=== PATIENT | female | born 2005 | race African-American/Black ===

== ENCOUNTER 2024-11-01 10:19 | Outpatient (CLI) | payer OTHER, SELFPAY ==
[2024-11-01 11:05] LABS: Hematocrit 39.3 % (37.0-47.0); Hemoglobin 13.5 g/dL (12.0-15.0); Mean Corpuscular HGB Conc 34.4 g/dl (32-36); Mean Corpuscular Hemoglobin 28.9 pg (26-34); Mean Corpuscular Volume 84.2 fl (80-100); Mean Platelet Volume 9.5 fl (7.4-10.4); Platelet Count Result 270 k/mm3 (150-375); Red Blood Count 4.67 M/mm3 (4.2-5.4); Red Cell Distribution Width 13.6 % (11.5-14.5); White Blood Count 9.2 K/mm3 (4.5-10.0)
--- OUTSIDE RECORDS SUMMARY | 2024-11-01 11:10 | XMS_ITS | Referral Summary ---
Author Organization [facility] Address [address] [place] [address] Care Team Providers Care Senior Underwriting Assistant Name Role Phone Janet Griggs NP Primary Care Provider Source Comments [facility],non-owned Affiliates and Associated Physician Practices is amultiple site organization consisting of ambulatory clinics and hospital sitesin [place], [place], [place] and [place]. This disclosure is being madepursuant to the Care Everywhere program and may not contain all information available regarding this patient. Last updated 18.[facility] [employer] Allergies No known active allergies Medications * Be aware that medications may not be up to date on this document. Alwaysverify current medications with the patient. Medication Sig Dispensed Refills Start Date End Date Status Humidifiers (COOL MIST HUMIDIFIER) MISC Use in child's room 1 Each 0 01/13/2012 Active fluticasone propionate (FLONASE) 50 MCG/ACT nasal spray [place] 2 sprays into each nostril once daily Active cetirizine (ZYRTEC) 10 MG tablet Take 10 mg by mouth once daily Active Social History Tobacco Use Types Packs/Day Years Used Date Smoking Tobacco: Never Smokeless Tobacco: Never Alcohol Use Standard Drinks/Week Comments Never 0 (1 standard drink = 0.6 oz pur e alcohol) AUDIT-C Answer Date Recorded Q1: How often do you have a drink containing alc ohol? Never 04/10/2020 Average Number of Drinks Not on file 020 Frequency of Binge Drinking Not on file 03/23 Sex and Gender Information Value Date Recorded Sex Assigned at Not on file Gender Identity Not on file Sexual Orientation Not on file Last Filed Vital Signs Vital Sign Reading Time Taken Comments Blood Pressure 110/69 04/10/2020 2:00 PM CDT Pulse 84 04/10/2020 2:00 PM CDT Temperature 36.9 C (98.4 F) 04/10/2020 2:00 PM CDT Respiratory Rate 16 04/10/2020 2:00 PM CDT Oxygen Saturation 100% 04/10/2020 2:00 PM CDT Inhaled Oxygen Concentration - - Weight 56.6 kg (124 lb 12.5 oz) 04/10/2020 2:00 PM CDT Height 157 cm (5' 1.81 ) 04/10/2020 2:00 PM CDT Body Mass Index 22.96 04/10/2020 2:00 PM CDT Plan of Treatment Not on file Care Teams Senior Underwriting Assistant Relationship Specialty Start Date End Date Janet [place] [address] PCP - General 01/13/12
--- OUTSIDE RECORDS SUMMARY | 2024-11-01 11:10 | XMS_ITS | Clinical Summary ---
Author Organization [place] [id number] [facility] Address [address] [place] [address] Care Team Providers Care Ecosystem Ecology Professor Name Role Phone Ailyn Brand Primary Care Provider Allergies No known active allergies Medications ipratropium (ATROVENT) 21 mcg (0.03 %) nasal spray Administer 2 sprays into each nostril every 12 (twelve) hours 30 mL 3 Active Social History Tobacco Use Types Packs/Day Years Used Date Smoking Tobacco: Never Assessed Personal Safety Answer Date Recorded Getting School Help Needed Not on file 04/09 Comments Unknown Sex and Gender Information Value Date Recorded Sex Assigned at Not on file 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 Gender Identity Not on file Sexual Orientation Not on file Last Filed Vital Signs Vital Sign Reading Time Taken Comments Blood Pressure 128/81 04/06/2023 4:21 AM CDT Pulse 77 04/06/2023 4:21 AM CDT Temperature 36.8 C (98.3 F) 04/06/2023 4:21 AM CDT Respiratory Rate 16 04/06/2023 4:21 AM CDT Oxygen Saturation 100% 04/06/2023 4:21 AM CDT Inhaled Oxygen Concentration - - Weight 57 kg (125 lb 10.6 oz) 04/06/2023 1:53 AM CDT Height 157 cm (5' 1.81 ) 04/06/2023 1:53 AM CDT Body Mass Index 23.12 04/06/2023 1:53 AM CDT Plan of Treatment Health Maintenance Due Date Last Done Comments Depression Screening 2004 Hepatitis C Screening 2004 Pneumococcal vaccine <65 (1 of 2 - PCV) 01/08/2010 04/12/2005, 2004, 2004, Additional history exists Regular Well Visit/Exam 18-64 01/08/2022 DTaP/Tdap/Td Vaccine (7 - Td or Tdap) 01/12/2024 01/11/2014, 01/11/2008, 01/11/2008, Additional history exists Covid-19 Vaccine (3 - 2023-2 5 season) 2024 02/23/2021, 02/03/2021 Influenza Vaccine (#1) 2024 6, 07/11/2005, 2004, Additional history exists Varicella Vaccines Completed 01/11/2008, 01/11/2005 HPV Vaccines Completed 01/17/2015, 02/21, 03/14/2014, Additional history exists Meningococcal Vaccine Completed 03/15/2020, 015 Meningococcal B Vaccine Completed 02/01/2021, 03/15 Insurance [facility] Care Teams Ecosystem Ecology Professor Relationship Specialty Start Date End Date Ailyn Brand PA PCP - General Watch Inspector 04/06/23
--- OUTSIDE RECORDS SUMMARY | 2024-11-01 11:10 | XMS_ITS | Clinical Summary ---
Author Organization [facility] Address [address] [place] [address] Care Team Providers Care Collection Systems Foreman Name Role Phone Unavailable Primary Care Provider Unavailabl e Social History Tobacco Use Types Packs/Day Years Used Date Smoking Tobacco: Never Assessed Comments Unknown Sex and Gender Information Value Date Recorded Sex Assigned at Not on file Legal Sex Female 4:03 PM CDT Gender Identity Not on file Sexual Orientation Not on file Plan of Treatment Health Maintenance Due Date Last Done Comments Hepatitis C Virus (HCV) Screening 2004 Influenza Immunization (#1) 05/23/202407/24, 07/11/2005, 2004, Additional history exists SARS-COV-2 Immunization ( season) 2024 02/23/2021, 02/03/2021 Respiratory Syncytial Virus (RSV) Immunization (Adult) (1 - 1-dose 75+ series) 01/08/2079 Hepatitis B Immunization Completed 004, 2004, 2004, Additional history exists Pneumococcal Immunization Combined Aged Out 04/12/2005, 2004, 2004, Additional history exists No longer eligible based on patient's age to complete this topic Hepatitis A Immunization Discontinued 08/18/2006, 0501/2006 Measles Mumps Rubella (MMR) Immunization Discontinued 01/11/2008, 01/11/2005 Polio (IPV) Immunization Discontinued 01/11/2008 Varicella Immunization Discontinued 01/11/2008, 2004 DTaP/Tdap/Td Immunization Discontinued 2013, 01/11/2008, 04/12/2005, Additional history exists TdaP Immunization Completed 01/11/2014 Human Papillomavirus (HPV) Immunization Completed 01/17/2015, 03/14/2014, 01/11/2014 Meningococcal Immunization (ACWY) Completed 03/15/2020, 01/17/2015 Meningococcal B Immunization Completed 02/01/2021, 03/15/2020 Rotavirus Immunization Aged Out No lo nger eligible based on patient's age to complete this topic
--- OUTSIDE RECORDS SUMMARY | 2024-11-01 11:10 | XMS_ITS | Patient Health Summary ---
Author Organization [facility] Address [address] [place] [address] Care Team Providers Care Settlement Clerk Name Role Phone Janet Griggs NP Primary Care Provider Note from [facility],non-owned Affiliates and Associated Physician Practices is amultiple site organization consisting of ambulatory clinics and hospital sitesin [place], [place], [place] and [place]. This disclosure is being madepursuant to the Care Everywhere program and may not contain all information available regarding this patient. Last updated 18.[facility] Allergies No known active allergies Medications * Be aware that medications may not be up to date on this document. Alwaysverify current medications with the patient. * Humidifiers (COOL MIST HUMIDIFIER) [facility]Started 01/13/2012) Use in child's room * fluticasone propionate (FLONASE) 50 MCG/ACT nasal spray [place] 2 sprays into each nostril once daily * cetirizine (ZYRTEC) 10 MG tablet Take 10 mg by mouth once daily Social History Tobacco Use Types Packs/Day Years [...] Mass Index 22.96 04/10/2020 2:00 PM CDT Procedures * HEMOGLOBIN ELECTROPHORESIS(Performed 04/10/2020) Performed for Sickle cell trait (HCC) * RETIC COUNT(Performed 04/10/2020) Performed for Sickle cell trait ([facility]) * CBC W AUTO DIFFERENTIAL(Performed 04/10/2020) Performed for Sickle cell trait (HCC) Results * (ABNORMAL) HEMOGLOBIN ELECTROPHORESIS (04/10/2020 2:50 PM CDT) Interpretation Hemoglobin Pattern Abnormal Pattern(A) Normal Pattern 04/13/2020 12:50 PM CDT [facility] Comment: Capillary hemoglobin (Hb) electrophoresis shows 4 Hb bands with electrophoretic mobilities corresponding to HbA, HbF, HbS and HbA2. The relative amounts of these Hb species are consistent with a diagnosis of (heterozygous) HbS carrier state (sickle cell trait). These results are confirmed by acid gel electrophoresis. Lamin Garcia MD Pathology Resident PGY-1 Pager: [phone] Anali York MD Room Service Runner Clinical Core Laboratory [facility] *The electrophoresis pattern and the interpretation have been reviewed and verified by the teaching physician. Hemoglobin A 54.0(L) 97.0 - 98.2 % 04/13/2020 12:50 PM CDT [facility] Hemoglobin A2 3.1(H) 1.8 - 3.0 % 04/13/2020 12:50 PM CDT [facility] Hemoglobin F 1.0 <2.0 % 04/13/2020 12:50 PM CDT [facility] Hemoglobin S Quantitative 41.1(H) Not Detected % 04/13/2020 12:50 PM CDT [facility] Blood BLOOD SPECIMEN / Unknown Lab Venipuncture / Unknown 04/10/2020 2:50 PM CDT 04/10/2020 3:13 PM CDT Sammie Pro MD LAB - CHEMISTRY ORDCameron LAGOS Performing Organization Address [facility]/ZIP Co de Phone Number [facility] [address] [place] [phone] [phone] * RETIC COUNT (04/10/2020 2:50 PM CDT) Reticulocyte Count 1.30 0.3 - 4.2 % 04/10/2020 3:47 PM CDT [facility] Reticulocyte Absolute 0.0580 0.0416 - 0.0651 x10E6/uL 04/10/2020 3:47 PM CDT [facility] Reticulocyte Immature Fractionated 11.3 9.0 - 18.7 % 04/10/2020 3:47 PM CDT [facility] Hemoglobin Retic 32.7 29.9 - 38.4 pg 04/10/2020 3:47 PM CDT [facility] Blood BLOOD SPECIMEN / Unknown Lab Venipuncture / Unknown 04/10/2020 2:50 PM CDT 04/10/2020 3:12 PM CDT Sammie Pro MD LAB - HEMATOLOGY ORD NESTORBLES Performing Organization Address [facility]/ZIP Co de Phone Number [facility] [address] [place] [phone] * CBC W AUTO DIFFERENTIAL (04/10/2020 2:50 PM CDT) WBC 7.1 4.5 - 14.5 x10E9/L 04/10/2020 3:47 PM CDT [facility] WBC Corrected 04/10/2020 3:47 PM CDT [facility] RBC 4.46 4.10 - 5.10 x10E12/L 04/10/2020 3:47 PM CDT [facility] Hemoglobin 12.6 12.0 - 16.0 gm/dL 04/10/2020 3:47 PM [facility] Hematocrit 37.9 36.0 - 47.0 % 04/10/2020 3:47 PM [facility] MCV 85.0 78.0 - 98.0 fl 04/10/2020 3:47 PM [facility] MCH 28.3 25.0 - 35.0 pg 04/10/2020 3:47 PM [facility] MCHC 33.2 31.0 - 37.0 gm/dL 04/10/2020 3:47 PM [facility] Platelet Count 262 100 - 400 x10E9/L 04/10/2020 3:47 PM [facility] RDW-CV 12.7 11.5 - 14.0 % 04/10/2020 3:47 PM [facility] MPV 9.5 6.0 - 9.5 fl 04/10/2020 3:47 PM [facility] Neutrophils % 64.4 24.0 - 66.0 % 04/10/2020 3:47 PM [facility] Lymphocytes % 28.7 22.0 - 61.0 % 04/10/2020 3:47 PM [facility] Monocytes % 5.2 3.0 - 15.0 % 04/10/2020 3:47 PM [facility] Eosinophils % 0.7 0.0 - 10.0 % 04/10/2020 3:47 PM [facility] Basophils % 0.4 % 04/10/2020 3:47 PM [facility] Immature Granulocytes 0.6 % 04/10/2020 3:47 PM [facility] Neutrophil Absolute 4.59 1.08 - 9.57 x10E9/L 04/10/2020 3:47 PM [facility] Lymphocytes Absolute 2.04 0.99 - 8.85 x10E9/L 04/10/2020 3:47 PM [facility] Monocytes Absolute 0.37 0.14 - 2.18 x10E9/L 04/10/2020 3:47 PM [facility] Eosinophils Absolute 0.05 0 - 1.45 x10E9/L 04/10/2020 3:47 PM [facility] Basophils Absolute 0.03 0 - 0.29 x10E9/L 04/10/2020 3:47 PM CDT [facility] Immature Granulocytes Absolute 0.04 0 - 0.15 x10E9/L 04/10/2020 3:47 PM CDT [facility] nRBC Auto 0 /100 WBC 04/10/2020 3:47 PM CDT [facility] Blood BLOOD SPECIMEN / Unknown Lab Venipuncture / Unknown 04/10/2020 2:50 PM CDT 04/10/2020 3:12 PM CDT Sammie Pro MD LAB - HEMATOLOGY ORD ERABLES [facility] [address] [place] [address] Care Teams Settlement Clerk Relationship Specialty Start Date End Date Janet Griggs NP [address] [place] [phone] PCP - General 01/13/12
--- OUTSIDE RECORDS SUMMARY | 2024-11-01 11:10 | XMS_ITS | Referral Summary ---
Author Organization 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
--- OUTSIDE RECORDS SUMMARY | 2024-11-01 11:10 | XMS_ITS | Clinical Summary ---
Author Organization [facility] Address [address] [place] [address] Care Team Providers Care Salesperson Hosiery Name Role Phone Janet Griggs NP Primary Care Provider Source Comments [facility],non-owned Affiliates and Associated Physician Practices is amultiple site organization consisting of ambulatory clinics and hospital sitesin [place], [place], [place] and [place]. This disclosure is being madepursuant to the Care Everywhere program and may not contain all information available regarding this patient. Last updated 18.[facility] Allergies No known active allergies Medications * Be aware that medications may not be up to date on this document. Alwaysverify current medications with the patient. Medication Sig Dispensed Refills Start Date End Date Status Humidifiers (COOL MIST HUMIDIFIER) MISC Use in child's room 1 Each 0 01/13/2012 Active fluticasone propionate (FLONASE) 50 MCG/ACT nasal spray [place] 2 sprays into each nostril once daily [...] 04/10/2020 2:00 PM CDT Plan of Treatment Health Maintenance Due Date Last Done Comments HIV SCREENING 01/08/2019 HPV VACCINE (1 - 3-dose series) 01/08/2019 CHLAMYDIA/GONORRHEA SCREENING 2020 MENINGOCOCCAL (Group B) VACC INE (1 of 2 - Standard) 2020 HEPATITIS C SCREENING 01/04/2022 DTAP/TDAP/TD VACCINES (1 - Tdap) 01/08/2023 HEPATITIS B VACCINE (1 of 3 - 19+ 3-dose series) 01/08/2023 COVID-19 VACCINE (1 - 2023-2 5 season) 2024 INFLUENZA VACCINE (#1) 2024 DEPRESSION SCREENING 09/22/2024 ZOSTER VACCINE (1 of 2) 01/08/2054 HIB VACCINE Aged Out No longer eligi ble based on patient's age to complete this topic MENINGOCOCCAL VACCINE Aged Out No fabiola wes eligible based on patient's age to complete this topic PNEUMOCOCCAL VACCINE Aged Out No long er eligible based on patient's age to complete this topic Care Teams Salesperson Hosiery Relationship Specialty Start Date End Date Janet Griggs NP [address] [place] [phone] PCP - General 01/13/12
--- OUTSIDE RECORDS SUMMARY | 2024-11-01 11:10 | XMS_ITS | Clinical Summary ---
Author Organization [facility] Address [facility] [place] [address] Care Team Providers Care Deposit Clerk Name Role Phone Unavailable Primary Care Provider Unavailabl e Social History Tobacco Use Types Packs/Day Years Used Date Smoking Tobacco: Never Assessed Sex and Gender Information Value Date Recorded Sex Assigned at Not on file Legal Sex Male 6:57 PM CDT Gender Identity Not on file Sexual Orientation Not on file Plan of Treatment Health Maintenance Due Date Last Done Comments Annual Physical 01/08/2007 HPV Vaccines (1 - Male 3-dos e series) 01/08/2019 Meningococcal B Vaccine (1 o f 2 - Standard) 2020 Hepatitis C 01/08/2022 DTaP, Tdap and Td Vaccines ( 1 - Tdap) 01/08/2023 Hepatitis B Vaccines (1 of 3 - 19+ 3-dose series) 01/08/2023 COVID-19 Vaccine ( - 2023-2 5 season) 2024 Influenza Adult (#1) 2024 Meningococcal Vaccine Aged Out No fabiola wes eligible based on patient's age to complete this topic Pneumococcal Vaccine: Pediat rics (0 to 5 Years) and At-Risk Patients (6 to 64 Years) Aged Out No longer eligible b ased on patient's age to complete this topic RSV Immunizations Under 20 Months Aged Out No longer eligible based on patient's age to complete this topic
[2024-11-01 11:57] LABS: HIV 1/2 Ab P24 Ag Result Negative (Negative)
[2024-11-01 12:07] LABS: Hepatitis B Surface Antigen Negative (Negative)
[2024-11-01 21:14] LABS: Rubella IgG Antibody > 110.0 IU/ML
[2024-11-02 17:33] LABS: CMV IgG Antibody <0.60 U/mL
== END 2024-11-01 10:20 | disposition home or self-care (01) ==
LOC: ANHLAB 10:21
PROVIDERS: Visit Provider Student in an Organized Health Care Education/Training Program
DX: N91.2 Amenorrhea, unspecified (principal)
CPT/HCPCS: 36415; 84702; 85027; 85660; 86644; 86703; 86747; 86762; 86850; 86900; 86901; 87340; G0432

== ENCOUNTER 2024-11-08 13:09 | Outpatient (CLI) | payer OTHER, SELFPAY ==
--- OUTSIDE RECORDS SUMMARY | 2024-11-08 15:36 | XMS_ITS | Clinical Summary ---
Author Organization [facility] Address [facility] [place] [address] Care Team Providers Care Commercial Front Load Operator Name Role Phone Unavailable Primary Care Provider [...]
--- OUTSIDE RECORDS SUMMARY | 2024-11-08 15:36 | XMS_ITS | Referral Summary ---
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
--- OUTSIDE RECORDS SUMMARY | 2024-11-08 15:36 | XMS_ITS | Clinical Summary ---
Author Organization [facility] Address [address] [place] [address] Care Team Providers Care Citrix Consultant Name Role Phone Janet Griggs NP Primary Care Provider Source Comments [facility]),non-owned Affiliates and Associated Physician Practices is amultiple site organization consisting of ambulatory clinics and hospital sitesin [place], [place], [place] and [place]. This disclosure is being madepursuant to the Care Everywhere program and may not contain all information available regarding this patient. Last updated 18.[facility] Allergies No known active allergies Medications * Be aware that medications may not be up to date on this document. Alwaysverify current medications with the patient. Medication Sig Dispensed Refills Start Date End Date Status Humidifiers (COOL MIST HUMIDIFIER) MISC Use in child's room 1 Each 0 01/13/2012 Active fluticasone propionate (FLONASE) 50 MCG/ACT nasal spray [place] 2 sprays into each nostril once daily [...] age to complete this topic Care Teams Citrix Consultant Relationship Specialty Start Date End Date Janet Griggs NP [address] [place] [phone] PCP - General 01/13/12
--- OUTSIDE RECORDS SUMMARY | 2024-11-08 15:36 | XMS_ITS | Clinical Summary ---
Author Organization [facility] Address [address] [place] [address] Care Team Providers Care Youth Career Specialist Name Role Phone Unavailable Primary Care Provider [...]
--- OUTSIDE RECORDS SUMMARY | 2024-11-08 15:36 | XMS_ITS | Patient Health Summary ---
Author Organization [facility] Address [address] [place] [address] Care Team Providers Care Clinical Cytogeneticist Scientist Name Role Phone Janet Griggs NP Primary Care Provider Note from [facility],non-owned Affiliates and Associated Physician Practices is amultiple site organization consisting of ambulatory clinics and hospital sitesin [place], [place], [place] and [place]. This disclosure is being madepursuant to the Care Everywhere program and may not contain all information available regarding this patient. Last updated 18.[facility] Allergies No known active allergies Medications * Be aware that medications may not be up to date on this document. Alwaysverify current medications with the patient. * Humidifiers (COOL MIST HUMIDIFIER) [facility](Started 01/13/2012) Use in child's room * fluticasone propionate (FLONASE) 50 MCG/ACT nasal spray [place] 2 sprays into each nostril once daily [...] COUNT(Performed 04/10/2020) Performed for Sickle cell trait ([facility]) * CBC W AUTO DIFFERENTIAL(Performed 04/10/2020) Performed for Sickle cell trait (HCC) Results * (ABNORMAL) HEMOGLOBIN ELECTROPHORESIS (04/10/2020 2:50 PM CDT) Interpretation Hemoglobin Pattern Abnormal Pattern(A) Normal Pattern 04/13/2020 12:50 PM CDT [facility] Comment: Capillary hemoglobin (Hb) electrophoresis shows 4 Hb bands with electrophoretic mobilities corresponding to HbA, HbF, HbS and HbA2. The relative amounts of these Hb species are consistent with a diagnosis of (heterozygous) HbS carrier state (sickle cell trait). These results are confirmed by acid gel electrophoresis. Lamin Garcia MD Pathology Resident PGY-1 Pager: [phone] Anali York MD [facility] Clinical Core Laboratory [facility] *The electrophoresis pattern and the interpretation have been reviewed and verified by the teaching physician. Hemoglobin A 54.0(L) 97.0 - 98.2 % 04/13/2020 12:50 PM CDT [facility] Hemoglobin A2 3.1(H) 1.8 - 3.0 % 04/13/2020 12:50 PM CDT [facility] Hemoglobin F 1.0 <2.0 % 04/13/2020 12:50 PM CDT [facility] Hemoglobin S Quantitative 41.1(H) Not Detected % 04/13/2020 12:50 PM CDT [facility] Blood BLOOD SPECIMEN / Unknown Lab Venipuncture / Unknown 04/10/2020 2:50 PM CDT 04/10/2020 3:13 PM CDT Sammie Pro MD LAB - CHEMISTRY ORDCameron LAGOS Performing Organization Address [facility]/ZIP Co de Phone Number [facility] [address] [place] [id number] [phone] * RETIC COUNT (04/10/2020 2:50 PM CDT) Reticulocyte Count 1.30 0.3 - 4.2 % 04/10/2020 3:47 PM CDT [facility] Reticulocyte Absolute 0.0580 0.0416 - 0.0651 x10E6/uL 04/10/2020 3:47 PM CDT [facility] Reticulocyte Immature Fractionated 11.3 9.0 - 18.7 % 04/10/2020 3:47 PM CDT [facility] Hemoglobin Retic 32.7 29.9 - 38.4 pg 04/10/2020 3:47 PM CDT [facility] Blood BLOOD SPECIMEN / Unknown Lab Venipuncture / Unknown 04/10/2020 2:50 PM CDT 04/10/2020 3:12 PM CDT Sammie Pro MD LAB - HEMATOLOGY ORD NESTORBLES Performing Organization Address [facility]/ZIP Co de Phone Number [facility] [address] [place] [phone] * CBC W AUTO DIFFERENTIAL (04/10/2020 2:50 PM CDT) WBC 7.1 4.5 - 14.5 x10E9/L 04/10/2020 3:47 PM CDT [facility] WBC Corrected 04/10/2020 3:47 PM CDT [facility] RBC 4.46 4.10 - 5.10 x10E12/L 04/10/2020 3:47 PM CDT [facility] Hemoglobin 12.6 12.0 - 16.0 gm/dL 04/10/2020 3:47 PM [facility] Hematocrit 37.9 36.0 - 47.0 % 04/10/2020 3:47 PM [facility] MCV 85.0 78.0 - 98.0 fl 04/10/2020 3:47 PM [facility] MCH 28.3 25.0 - 35.0 pg 04/10/2020 3:47 PM [facility] MCHC 33.2 31.0 - 37.0 gm/dL 04/10/2020 3:47 PM [facility] Platelet Count 262 100 - 400 x10E9/L 04/10/2020 3:47 PM [facility] RDW-CV 12.7 11.5 - 14.0 % 04/10/2020 3:47 PM [facility] MPV 9.5 6.0 - 9.5 fl 04/10/2020 3:47 PM [facility] Neutrophils % 64.4 24.0 - 66.0 % 04/10/2020 3:47 PM [facility] Lymphocytes % 28.7 22.0 - 61.0 % 04/10/2020 3:47 PM [facility] Monocytes % 5.2 3.0 - 15.0 % 04/10/2020 3:47 PM [facility] Eosinophils % 0.7 0.0 - 10.0 % 04/10/2020 3:47 PM [facility] Basophils % 0.4 % 04/10/2020 3:47 PM [facility] Immature Granulocytes 0.6 % 04/10/2020 3:47 PM [facility] Neutrophil Absolute 4.59 1.08 - 9.57 x10E9/L 04/10/2020 3:47 PM [facility] Lymphocytes Absolute 2.04 0.99 - 8.85 x10E9/L 04/10/2020 3:47 PM [facility] Monocytes Absolute 0.37 0.14 - 2.18 x10E9/L 04/10/2020 3:47 PM [facility] Eosinophils Absolute 0.05 0 - 1.45 x10E9/L 04/10/2020 3:47 PM [facility] Basophils Absolute 0.03 0 - 0.29 x10E9/L 04/10/2020 3:47 PM CDT [facility] Immature Granulocytes Absolute 0.04 0 - 0.15 x10E9/L 04/10/2020 3:47 PM CDT [facility] nRBC Auto 0 /100 WBC 04/10/2020 3:47 PM CDT [facility] Blood BLOOD SPECIMEN / Unknown Lab Venipuncture / Unknown 04/10/2020 2:50 PM CDT 04/10/2020 3:12 PM CDT Sammie Pro MD LAB - HEMATOLOGY ORD ERABLES [facility] [address] [place] [address] Care Teams Clinical Cytogeneticist Scientist Relationship Specialty Start Date End Date Janet Griggs NP [address] [place] [id number] PCP - General 01/13/12
--- OUTSIDE RECORDS SUMMARY | 2024-11-08 15:36 | XMS_ITS | Clinical Summary ---
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 Gender Identity Not on file Sexual [...] Depression Screening 2004 Hepatitis C Screening 2004 Regular Well Visit/Exam 18-64 01/08/2022 Pneumococcal vaccine <65 (1 of 2 - PCV) 01/08/2023 04/12/2005, 2004, 2004, Additional history exists DTaP/Tdap/Td Vaccine (7 - Td or Tdap) 01/12/2024 01/11/2014, 01/11/2008, 01/11/2008, Additional history exists Covid-19 Vaccine (3 - 2023-2 5 season) 2024 02/23/2021, 02/03/2021 Influenza Vaccine (#1) 2024 6, 07/11/2005, 2004, Additional history exists Hepatitis B Screening Completed 2004 , 2004, 2004, Additional history exists Varicella Vaccines Completed 01/11/2008, 01/11/2005 HPV Vaccines Completed 01/17/2015, 02/21, 03/14/2014, Additional history exists Meningococcal Vaccine Completed 03/15/2020, 015 Meningococcal B Vaccine Completed 02/01/2021, 03/15 Insurance [facility] Care Teams Database Engineer Relationship Specialty Start Date End Date Ailyn Brand PA PCP - General Cuff Runner 04/06/23
--- OUTSIDE RECORDS SUMMARY | 2024-11-08 15:37 | XMS_ITS | Referral Summary ---
Author Organization [facility] Address [address] [place] [address] Care Team Providers Care Wincher Name Role Phone Janet Griggs NP Primary Care Provider Source Comments [facility],non-owned Affiliates and Associated Physician Practices is amultiple site organization consisting of ambulatory clinics and hospital sitesin [place], [place], [place] and [place]. This disclosure is being madepursuant to the Care Everywhere program and may not contain all information available regarding this patient. Last updated 18.[facility] [place] Allergies No known active allergies Medications * Be aware that medications may not be up to date on this document. Alwaysverify current medications with the patient. Medication Sig Dispensed Refills Start Date End Date Status Humidifiers (COOL MIST HUMIDIFIER) MISC Use in child's room 1 Each 0 01/13/2012 Active fluticasone propionate (FLONASE) 50 MCG/ACT nasal spray [place] 2 sprays into each nostril once daily [...] of Treatment Not on file Care Teams Wincher Relationship Specialty Start Date End Date [place] [phone] PCP - General 01/13/12
--- OUTSIDE RECORDS SUMMARY | 2024-11-08 15:37 | XMS_ITS | Data Portability ---
Author Organization [facility] CORYTeresita Address [address] [place] [address] Care Team Providers Care Scout Executive Name Role Phone OVIDIO BRAND Primary Care Provider Unavailabl e Assessment No assessment recorded. Plan of Treatment Reminders Order Date Submit Date Provider Last Modified By Organization Details Last Modified Time Details Appointments None recorded. Lab urinalysis , dipstick 2022 023 In-Office Order, Internal Use Only DO Not Attach Compendium DO Not Attach Compendium, Do Not Delete/merge, [id number] 11:31:23 vaginal pathogens panel, KELBY+probe, vaginal fluid 2022 023 [facility], [address], [address], [place], [address], 3 06:17:02 culture, urine 2022 023 [facility]AD[facility]AV [facility], 20[address] I[address] Smith, [address], [place], [address], 3 06:17:03 chlamydia trachomati s + neisseria gonorrhoea e + trichomona s vaginalis DNA panel, KELBY+probe, unspecifie d specimen 2022 023 [email or web address] [facility], 2022 Iris Smith, [address], [place], [address], 3 10:42:50 culture, urine 2022 023 [facility] Iris Smith, [address], [address], 3 10:58:05 Referral None recorded. Procedures None recorded. Surgeries None recorded. Imaging None recorded. Medication Orders docusate sodium 100 mg capsule 2023 024 [facility] [employer] [id number], [address] [facility], [place], [place], [id number], 4 12:02:31 doxycyclin e hyclate 100 mg capsule 2023 024 [facility] [employer] [facility] #[id number], [address] [facility], [place], [place], [id number], 4 12:02:30 Diflucan 150 mg tablet [email or web address] [place] [address] [employer] [facility]97162, [address] , [place], [place], [id number], 4 11:55:41 albuterol sulfate HFA 90 mcg/actuat ion aerosol inhaler 2022 023 [facility] [employer] [facility]66498, [address], [place], [id number], 3 16:31:57 fluticason e propionate 50 mcg/actuat ion nasal spray,susp ension 2022 023 [facility] [employer] [facility]34477, [address] [place], [place], [id number], 3 16:31:55 cetirizine 10 mg tablet 2022 023 [facility] [employer] [facility] #[id number], [address] [place], [place], [id number], 3 16:31:57 metronidaz ole 500 mg tablet 2022 023 MADHAV [facility] #[id number], [address] [facility], [place], [place], [id number], 16:26:02 Patient TargetsNo targets recorded. Patient Instructions Encounter Date Encounter Id Patient Instructions Last Modified By Organization Details Last Modified Time 04/23/2023 [id number] bacterial vaginosis in teens: care instructions Not available 04/23/2023 11:31:23 vaginal yeast infection: care instructions Not available 04/23/2023 11:31:23 A healthy lifestyle: care instructions [email or web address] Not available 04/23/2023 11:31:23 05/07/2023 [id number] A healthy lifestyle: care [email or web address] Not available 05/07/2023 10:12:31 09/26/2023 [id number] A healthy lifestyle: care instructions Not available 09/26/2023 12:02:22 Reason for Referral None Reported. Results Created Date Observation Date Name Description Value Unit Range Abnormal Flag Note LastModifiedBy Organization Detail LastModifiedTime 04/23/2004/25/2023 NUSWA B VAGIN ITIS PLUS (VG+) atopobium vaginae LOW - 0 score Not Available [facility] ([facility]) [address] [place], [address], 04/26/2023 06:17:02 04/23/2004/25/2023 NUSWA B VAGIN ITIS PLUS (VG+) bvab 2 LOW - 0 score Not Available [facility] ([facility]) [address] [place], [address], 04/26/2023 06:17:02 04/23/2004/25/2023 NUSWA B VAGIN ITIS PLUS (VG+) megasphaera 1 LOW - 0 score Calcu late total score by fco benjamin the 3 indiv idual bacte rial vagin osis (BV) marke r score s toget her. Total score is inter prete d as follo ws: Total score 0-1: Indic ates the absen ce of BV. Total score 2: Indet ermin ate for BV. Addit ional clini teofilo data shoul d be evalu ated to estab simón a diagn osis. Total score 3-6: Indic ates the prese nce of BV. This test was devel oped and its perfo rmanc e ted cteri stics deter mined by [facility]. It has not been clear ed or appro estrella by the Food and Drug Admin istra tion. Not Available [facility] ([facility]) [address] [place], [address], 04/26/2023 06:17:02 04/23/20 23 04/25/2023 NUSWA B VAGIN ITIS PLUS (VG+) itz albicans, KELBY NEGATI VE negati ve Not Available [facility] ([facility]) [address] [place], [address], 04/26/2023 06:17:02 04/23/20 23 04/25/2023 NUSWA B VAGIN ITIS PLUS (VG+) itz glabrata, KELBY NEGATI VE negati ve Not Available [facility] ([facility]) [address] [place], [address], 04/26/2023 06:17:02 04/23/20 23 04/25/2023 NUSWA B VAGIN ITIS PLUS (VG+) trich vag by KELBY NEGATI VE negati ve Not Available [facility] ([facility]) [address] [place], [address], 04/26/2023 06:17:02 04/23/20 23 04/25/2023 NUSWA B VAGIN ITIS PLUS (VG+) chlamydia trachomatis, KELBY NEGATI VE negati ve Not Available [facility] ([facility]) [address] [place], [address], 04/26/2023 06:17:02 04/23/20 23 04/25/2023 NUSWA B VAGIN ITIS PLUS (VG+) neisseria gonorrhoeae, KELBY POSITI VE negati ve abnormal Not Available [facility] ([facility]) [address] [facility], [place], [address], 04/26/2023 06:17:02 04/23/20 23 04/25/2023 URINE CULTU RE,CO MPREH ENSIV E urine culture,comp rehensive FINAL REPORT Not Available [facility] ([facility]) [address] [facility], [place], [address], 04/26/2023 06:17:03 04/23/20 23 04/25/2023 URINE CULTU RE,CO MPREH ENSIV E result 1 COMMEN T Mixed uroge nital kristie 25,00 0-50, 000 colon y formi ng units per mL Not Available [facility] ([facility]) [address] [facility], [place], [address], 04/26/2023 06:17:03 04/23/20 23 04/23/2023 urina lysis , dipst ick Leukocytes Negati ve Not Available In-Office Order Internal Use Only DO Not Attach Compendium DO Not Attach Compendium, Do Not Delete/merge, [id number] 04/23/2023 11:15:17 04/23/20 23 04/23/2023 urina lysis , dipst ick Nitrite negati ve Not Available In-Office Order Internal Use Only DO Not Attach Compendium DO Not Attach Compendium, Do Not Delete/merge, [id number] 04/23/2023 11:15:17 04/23/20 23 04/23/2023 urina lysis , dipst ick Urobilinogen .2 Not Available In-Of fice Order Internal Use Only DO Not Attach Compendium DO Not Attach Compendium, Do Not Delete/merge, [id number] 04/23/2023 11:15:17 04/23/20 23 04/23/2023 urina lysis , dipst ick Protein Negati ve Not Available In-Office Order Internal Use Only DO Not Attach Compendium DO Not Attach Compendium, Do Not Delete/merge, [id number] 04/23/2023 11:15:17 04/23/20 23 04/23/2023 urina lysis , dipst ick pH 5.0 Not Available In-Office Order Internal Use Only DO Not Attach Compendium DO Not Attach Compendium, Do Not Delete/merge, 04/23/2023 11:15:17 04/23/20 23 04/23/2023 urina lysis , dipst ick Blood Large Not Available In-Office Order Internal Use Only DO Not Attach Compendium DO Not Attach Compendium, Do Not Delete/merge, 04/23/2023 11:15:17 04/23/20 23 04/23/2023 urina lysis , dipst ick Specific [place] 1.025 Not Available In-Off ice Order Internal Use Only DO Not Attach Compendium DO Not Attach Compendium, Do Not Delete/merge, 04/23/2023 11:15:17 04/23/20 23 04/23/2023 urina lysis , dipst ick Ketone Negati ve Not Available In-Office Order Internal Use Only DO Not Attach Compendium DO Not Attach Compendium, Do Not Delete/merge, 04/23/2023 11:15:17 04/23/20 23 04/23/2023 urina lysis , dipst ick Bilirubin Negati ve Not Available In-Office Order Internal Use Only DO Not Attach Compendium DO Not Attach Compendium, Do Not Delete/merge, 04/23/2023 11:15:17 04/23/20 23 04/23/2023 urina lysis , dipst ick Glucose Negati ve Not Available In-Office Order Internal Use Only DO Not Attach Compendium DO Not Attach Compendium, Do Not Delete/merge, 04/23/2023 11:15:17 04/23/20 23 04/23/2023 urina lysis , dipst ick Appearance Cloudy Not Available In-Offi ce Order Internal Use Only DO Not Attach Compendium DO Not Attach Compendium, Do Not Delete/merge, 04/23/2023 11:15:17 04/23/20 23 04/23/2023 urina lysis , dipst ick Color Brown Not Available In-Office Order Internal Use Only DO Not Attach Compendium DO Not Attach Compendium, Do Not Delete/merge, [id number] 04/23/2023 11:15:17 Result Notes None recorded. Problems Name Problem SNOMED Code Status Onset Date Resolution Date Notes Provider Name and Address Organization Details Recorded Time Functional heart murmur 66351745 Active 2018 Camille frances, [place] - [facility] 9 10:42:19 At increased risk of sexually transmitted infection 367496788 Active 2018 Camille Mcfadden null, [place] [facility] 9 10:42:19 Abnormal vision 7216475 Active 2018 Camille Mcfadd[place], [place] [facility] 9 10:42:23 Allergic rhinitis 98377163 Active 2019 Ovidio Brand PA-C Attn: Accountin g,[address] [facility], [place], [address], [place] [facility] 0 11:25:17 Menstrual cramp 683817252 Active 2019 Ovidio Brand PA-C Attn: Accountin g,[address] [facility], [place], [address], [place] [facility] 0 11:45:07 Sleep pattern disturbance 75201057 Active 2019 Ovidio Brand PA-C Attn: Accountin g,[address] [facility], [place], [address], [place] [facility] 0 11:50:39 Dizziness 000674455 Active 2021 Ovidio Brand PA-C Attn: Accountin g,[address] [facility], [place], [address], [place] [facility] 2 11:36:10 Anemia 540349361 Active 2021 Ovidio Brand PA-C Attn: Accountin g,[address] [facility], [place], [address], [place] [facility] 2 12:32:18 Constipation 26651281 Active 2023 Ovidio Brand PA-C Attn: Yury benjamin,[address], [place], [address], [facility] - [facility] 4 11:56:58 Disorder of vision 91073339 Active MIO Martinez Attn: Yury g,[address], [place], [address], [place] - [facility] 6 18:58:23 Exercise-induc ed asthma 82956648 Active MIO Martinez Attn: Yury g,[address], [place], [address], [facility] - [facility] 6 18:58:23 Problem Notes None recorded. Medical Equipment None Reported. Allergies No known drug allergies Medications Name Sig Start Date Stop Date Status Note LastModified by Organization Details LastModified Time doxycycline hyclate 100 mg capsule TAKE 1 CAPSULE BY MOUTH TWICE DAILY FOR 7 DAYS active Not Available Not Available No t Available cetirizine 10 mg tablet TAKE 1 TABLET BY MOUTH DAILY active Not Available Not Available No t Available fluconazole 150 mg tablet TAKE 1 TABLET BY MOUTH EVERY 72 HOURS 09/26 completed Not Available Not Available Not Available bacitracin 500 unit/gram topical ointment 03/20 completed Not Available Not Available Not Available metronidazo le 500 mg tablet TAKE 1 TABLET BY MOUTH EVERY 12 HOURS active Not Available Not Available No t Available Bactroban 2 % topical cream Apply 1 applicati on 3 times a day by topical route as directed for 7 days. 09/26 completed Not Available Not Available Not Available promethazin e 25 mg tablet TAKE 1 TABLET BY MOUTH EVERY 4 TO 6 HOURS NEEDED FOR NAUSEA active Not Available Not Available No t Available docusate sodium 100 mg capsule TAKE 1 CAPSULE BY MOUTH THREE TIMES DAILY active Not Available Not Available No t Available omeprazole 20 mg capsule,del ayed release active Not Available Not Available Not Available mupirocin 2 % topical ointment APPLY A SMALL AMOUNT TO THE AFFECTED AREA BY TOPICAL ROUTE 3 TIMES PER DAY active Not Available Not Available No t Available ibuprofen 600 mg tablet TAKE 1 TABLET BY MOUTH EVERY 6 HOURS NEEDED FOR PAIN active Not Available Not Available No t Available albuterol sulfate HFA 90 mcg/actuati on aerosol inhaler INHALE 2 PUFFS BY MOUTH EVERY 4 TO 6 HOURS NEEDED active Not Available Not Available No t Available docusate sodium 250 mg capsule TAKE 1 CAPSULE BY MOUTH TWICE DAILY active Not Available Not Available No t Available fluticasone propionate 50 mcg/actuati on nasal spray,suspe nsion SHAKE LIQUID AND USE 2 SPRAYS IN EACH NOSTRIL EVERY DAY 2022 active Not Available Not Available Not Avai lable loratadine 10 mg tablet TAKE 1 TABLET BY MOUTH DAILY active Not Available Not Available No t Available azithromyci n 500 mg tablet TAKE 2 TABLETS BY MOUTH FOR 1 DOSE 09/26 completed Not Available Not Available Not Available Saline Nasal 0.65 % spray aerosol 03/20 completed Not Available Not Available Not Available nitrofurant oin monohydrate /macrocryst als 100 mg capsule TAKE ONE CAPSULE BY MOUTH EVERY 12 HOURS WITH MEAL OR FOOD 09/26 completed Not Available Not Available Not Available FeroSul 325 mg (65 mg iron) tablet TAKE 1 TABLET BY MOUTH DAILY 09/26 completed Not Available Not Available Not Available Aerochamber Plus Flow-Vu active Not Available Not Available Not Available Metamucil Sugar-Free (aspartame) 3.4 gram/5.8 gram oral powder MIX 1 TABLESPOO NSFUL IN WATER OR JUICE AND DRINK ONCE DAILY DIRECTED. active Not Available Not Available No t Available Twirla 120 mcg-30 mcg/24 hr transdermal patch APPLY 1 PATCH TO SKIN EVERY 7 DAYS ONCE A WEEK FOR 3 WEEKS active Not Available Not Available No t Available Vitals Date Recorded Body height Provider Name an d Address Organization Details Last Updated DateTime 12/05/2022 157.48 cm Lola Neves MA [facility] 12/05 11:10:58 Date Recorded Body height Provider Name an d Address Organization Details Last Updated DateTime 01/31/2023 157.48 cm Lola Neves MA [facility] 01/31 14:08:30 Date Recorded Body height Body mass index (BMI) Body mass index (BMI) Percentile per age and sex Body weight Oxygen saturation Oxygen saturation in Arterial blood by Pulse oximetry Heart rate Respiratory rate Body temperature Systolic blood pressure Diastolic blood pressure Provider Name and Address Organization Details Last Updated DateTime 157.48 cm 29.7 kg/m2 93 % 20676.0 1 g 98 % 98 % 84 /min 18 /min 97.5 [degF] 98 mm[Hg] 70 mm[Hg] Lola Neves MA [facility] 11:07:43 Date Recorded Body height Provider Name an d Address Organization Details Last Updated DateTime 05/07/2023 157.48 cm Lola Neves MA [facility] 05/07 09:50:31 Date Recorded Body height Provider Name an d Address Organization Details Last Updated DateTime 09/26/2023 157.48 cm Lola Neves MA [facility] 09/26 11:16:35 Social History Question Answer Notes LastModified by Organizat ion Details LastModified Time Tobacco Smoking Status Never Smoker Sonia Bartlett MA [facility], [facility] 01/11/2015 11:35:32 Animal Exposure? No Information not available 01/11/2015 Do You Wear A Helmet When Biking? No Information not available 01/11/2015 Are You Or Have You Been Involved With Bullying? No Information not available 01/11/2015 What Is Your Level Of Caffeine Consumption? None Information not available 01/11/2015 What Type Of Diet Are You Following? REGULAR Information not available 01/11/2015 Have There Been Any Changes To Your Family Or Social Situation? No Information not available 01/11/2015 What Is The Fluoride Status Of Your Home? Fluoridated Information not available 01/11/2015 Are There Any Guns Present In Your Home? No Information not available 01/11/2015 What Is Your Home Situation? Mother Information not available 01/11/2015 Do You Use Insect Repellent Routinely? Yes Information not available 01/11/2015 Car Seat Type Or Seat Belt? Seat Belt Information not available 01/11/2015 Parent Involvement? Both Parents Involved Information not available 01/11/2015 Riding In Car Front Seat? No Information not available 01/11/2015 What Was The Date Of Your Most Recent Tobacco Screening? 12/05/2022 [email or web address] Information not available 12/05/2022 What Is Your Parents' Marital Status? Unmarried Information not available 01/11/2015 Pool Exposure No Information not available 01/11/2015 What Is The Name Of Your School? [employer] Information not available 03/08/2019 Do You Have Any Siblings? 3 Siblings Information not available 01/11/2015 Do You Have Smoke And Carbon Monoxide Detectors In Your Home? Yes Information not available 01/11/2015 Are You Passively Exposed To Smoke? No Information not available 01/11/2015 Do You Use Sunscreen Routinely? Yes Information not available 01/11/2015 Year In School 10 Informatio n not available 03/08/2019 Sex: Female Functional Status Question Answer Note LastModified by Organization D etails LastModified Time What is your exercise level? Moderate Information not available 01/11/2015 Mental Status None recorded. Family History Relationship Description Onset Age of this Age Resolved Age Notes LastModified by Organization Details LastModified Time Unspecified Relation Diabetes mellitus Not available 2015 16:31:28 Unspecified Relation Heart disease Not available 2015 16:31:28 Unspecified Relation History of hypertension Not available 04/2016 16:31:28 Maternal Grandfather Family history of malignant neoplasm of prostate 80 Not available 2015 16:31:28 Medical History Condition Response Blood Diseases N Ear or Hearing Problems N Thyroid Problems N Depression N Developmental or Behavioral Disorders N Skin Problems N Premature N Anemia N Constipation N Diabetes N Anxiety Disorder N Muscle, Joint, or Bone Problems N Bedwetting N Vision or Eye Problems N Heart Problems/Murmur N Seizures/Epilepsy N Head Injury/Concussion N Cancer N Asthma Y Allergies N ADHD N Bladder or Kidney Problems N Headaches N Chicken Pox N Autism Spectrum Disorder (ASD) N Gynecological History Statement/Question Response Flow Moderate Frequency of Cycle (Q days) 28 On BCP's at Conception? N Menses Monthly Y Duration of Flow (days) 5 Age at Menarche 9 Current Control Method None LMP Definite Obstetrics History GPAL:G 0 P 0 0 0 0 Immunizations Vaccine Type Date Status Note Provider Nam e and Address Organization Details Recorded Time varicella 8 completed Sonia Bartlett [place] [facility] 01/03/2015 10:39:03 Hep B, unspecified formulation 4 completed Sonia Bartlett [place] [facility] 01/03/2015 10:39:03 varicella 5 completed Sonia Bartlett [place] [facility] 01/03/2015 10:39:03 influenza, unspecified formulation 6 completed Sonia Bart[place] [facility] 01/03/2015 10:39:03 Hib, unspecified formulation 4 completed Sonia Bart[place] [facility] 01/03/2015 10:39:03 pneumococcal, unspecified formulation 4 completed Sonia [place] [facility] 01/03/2015 10:39:03 influenza, unspecified formulation 4 completed Sonia [place] [facility] 01/03/2015 10:39:03 DTaP, unspecified formulation 4 completed Sonia Bartlett [place] [facility] 01/03/2015 10:39:03 MMR 5 completed Sonia Bart[place] [facility] 01/03/2015 10:39:03 DTaP, unspecified formulation 4 completed Sonia [place] [facility] 01/03/2015 10:39:03 influenza, unspecified formulation 4 completed Sonia Bart[place] [facility] 01/03/2015 10:39:03 DTaP, unspecified formulation 4 completed Sonia [place] [facility] 01/03/2015 10:39:03 polio, unspecified formulation 4 completed Sonia [place] [facility] 01/03/2015 10:39:03 MMR 8 completed Sonia Bart[place] [facility] 01/03/2015 10:39:03 HPV, unspecified formulation 4 completed Sonia [place] [facility] 01/03/2015 10:39:03 Hep B, unspecified formulation 4 completed Sonia [place] [facility] 01/03/2015 10:39:03 polio, unspecified formulation 4 completed Sonia [place] [facility] 01/03/2015 10:39:03 pneumococcal, unspecified formulation 4 completed Sonia [place] [facility] 01/03/2015 10:39:03 Hib, unspecified formulation 4 completed Sonia [place] [facility] 01/03/2015 10:39:03 pneumococcal, unspecified formulation 5 completed [place] [facility] 01/03/2015 10:39:03 polio, unspecified formulation 4 completed [place] [facility] 01/03/2015 10:39:03 DTaP, unspecified formulation 5 completed Sonia Bart[place] [facility] 01/03/2015 10:39:03 Hep A, pediatric, unspecified formulation 6 completed [place] [facility] 01/03/2015 10:39:03 Hep B, unspecified formulation 4 completed [place] [facility] 01/03/2015 10:39:03 Hep B, unspecified formulation 4 [place] [facility] 01/03/2015 10:39:03 HPV, unspecified formulation 4 completed [place] [facility] 01/03/2015 10:39:03 influenza, unspecified formulation 5 completed [place] [facility] 01/03/2015 10:39:03 Hib, unspecified formulation 5 completed [place] [facility] 01/03/2015 10:39:03 DTaP, unspecified formulation 8 completed [place] [facility] 01/03/2015 10:39:03 Tdap 4 completed [place] [facility] 01/03/2015 10:39:03 pneumococcal, unspecified formulation 4 completed Sonia Bart[place] [facility] 01/03/2015 10:39:03 influenza, unspecified formulation 5 completed [place] [facility] 01/03/2015 10:39:03 polio, unspecified formulation 8 completed [place] [facility] 01/03/2015 10:39:03 Hib, unspecified formulation 4 [place] [facility] 01/03/2015 10:39:03 HPV, bivalent 5 completed Not Available [facility] 10/09/2019 02:45:27 Meningococcal MCV4O 5 completed Not Available [facility] 10/09/2019 02:42:00 Meningococcal MCV4O 0 [place] [facility] 03/15/2020 12:55:18 meningococcal B, OMV 0 [place] [facility] 03/15/2020 12:55:19 meningococcal B, OMV 1 [place] [facility] 02/01/2021 17:00:13 COVID-19, mRNA, LNP-S, PF, 30 mcg/0.3 mL dose 1 [facility] [place] [facility] 02/23/2021 15:21:24 Hep A, unspecified formulation 6 completed [place] [facility] 03/20/2017 14:39:28 Past Encounters Encounter ID Performer Location Encounter Start Date Encounter Closed Date Diagnosis/Indication Diagnosis SNOMED-CT Code Diagnosis ICD10 Code Diagnosis Note [id number] [facility] (Peds) [address] [place] [address] 01/17/2015 10:21:43 01/17/2015 14:25:15 Well child 965183028 PPD waiver completed - negative. School PE completed. To shower daily, brush teeth 2x daily. To schedule dental appt. Nutrition/ exercise Disorder of vision 80444354 To get new glasses. [id number] [facility] [address] [place] [address] 11/28/2015 15:55:14 12/02/2015 03:47:48 Well child 129270413 Z00.129 Sports PE completed. Fluzone offered-re fused. Nutrition/ exercise discussed. Disorder of vision 94489 002 H53.9 To get new glasses. Exercise-i nduced asthma 77074518 J45.990 New diagnosis. Use inhaler prn. If starts to need daily with exercise, use 15 min. pre-exerci se. No using of other meds. Medication permission form. [id number] [facility] [address] [place] [address] 03/20/2017 10:55:18 03/20/2017 16:52:18 Well child 122818002 Z00.129 Nutrition/ exercise discussed. Abnormal vision 2334115 H54.7 Vision screen results discussed with mom. Mom is aware that the child need glasses. Was seen at [facility] last year, never got glasses because [facility] states they lost the script. Mom will take somewhere else. If unable to get preschool program director starts, mom to call for [facility] seating letter. Exercise-i nduced asthma 52970707 J45.990 Uses inhaler PRN, has not needed for past year. Will have on hand for just in case. Medication permission form, Asthma action plan. Infection of skin and/or subcutaneous tissue 06626117 L08.9 Use medication as needed/ Dyssomnia 64494764 G47.9 If continues to be a problem, may use OTC Melatonin. [id number] Anjana balbuena MD [facility] (Peds) [address] [place] [address] 05/01/2018 10:53:48 05/05/2018 11:09:28 Well child 701915441 Z00.129 Age appropriat e anticipato ry guidance reviewed. [id number] Camille Mcfadden [facility] [facility] (Peds) [address] [place] [address] 03/08/2019 09:36:32 03/08/2019 13:59:30 Well child [id number] Z00.129 Well-appea ring 14 year old female with no acute issues. Good, healthy growth - reviewed growth charts with mom Normal developmen t and no school concerns. Doing awesome in school. IUTD; reminded about flu shot for this season. Discussed age-approp riate anticipato ry guidance per HPI/ROS, and in private. RTC yearly for WCC and PRN. Abnormal vision 9870344 H54.7 Vision 20/50 and 70. Needs eye check up. Exercise-i nduced asthma 68151290 J45.990 Well controlled . To use 15-20 minutes before activity. At [facility] risk of sexually transmitted infection 145306284 Z20.2 Sexually active X 2; did not use condom. Plans for abstinence now. Had long discussed about abstinence , control. Patient not interested at this time. Will screen. Pt Cell is [phone] Functional heart murmur 76808092 R01.0 Consistent w/ Still's murmur. [id number] Ovidio Brand PA-C [facility] (Peds) [address] [facility] [place] [address] 03/15/2020 10:14:35 03/17/2020 17:07:49 Well child 849911270 Z00.129 Well-appea ring 15 year old female for school checkGood, healthy growth - reviewed growth charts with momNormal developmen t and no school concerns.# 2menveo, #1bexsero give IUTD;Discu ssed age-approp riate anticipato ry guidance per HPI/ROSRtc in 1month for second bexseroref uses flu vaccine History an d physical examination, school 20350336 Z02.0 school physical form filled out Exercise-i nduced asthma 09215033 J45.990 controlled on ventolin prnpatient never uses inhaler at bedtime, uses less than twice a weekasthma action plan providedre filled medication Allergic rhinitis 927391 04 J30.9 discussed post nasal drainage and prominent epiglottis reassuranc e giventrial with flonase and cetirizine refilled mupirocin ointment which patient has used in the past, currently asymptomat icrefill given but discussed only to apply if she develops bacterial infection symptoms appear, which mom states tends to happen when allergies are aggravated .will monitorfol low up in 1monthif patient still has concerns with allergies, I will refer to ent at follow up if needed Menstrual cramp 18872203 1 N94.6 discussed problems with menstrual cramps during menstrual cycle and 1 week beforeper patient, she is having to miss school due to abdominal pain and vomitingcu rrently asymptomat icrecommen ded 400mg ibuprofen with meals every 6 hours prn painpatien t can follow up with telephone sales representative at [facility] if symptoms persist Sleep aria filomena disturbance 24361425 G47.9 discussed proper sleep hygeinetur n off lights, tv, drink caffeine free tea, avoid naps, no caffeinate d drinkspati ent can try half tab of otc benadryl (12.5mg) 1 hour before bedtime, increase to full tab as needed and toleratedw ill monitor for now and discuss if patient needs referral for sleep clinic or ent if needed [id number] Ovidio Brand PA-C [facility] (Peds) [address] [place] [address] 04/14/2020 14:19:31 04/17/2020 14:25:17 Allergic rhinitis 12754397 J30.9 improved on cetrizine and flonaserec ommended to continue medication as directed 03/15/2020d iscussed post nasal drainage and prominent epiglottis reassuranc e giventrial with flonase and cetirizine refilled mupirocin ointment which patient has used in the past, currently asymptomat icrefill given but discussed only to apply if she develops bacterial infection symptoms appear, which mom states tends to happen when allergies are aggravated .will monitorfol low up in 1monthif patient still has concerns with allergies, I will refer to ent at follow up if needed Menstrual cramp 15323843 1 N94.6 improved on ibuprofenw ill monitor 03/15/2020d iscussed problems with menstrual cramps during menstrual cycle and 1 week beforeper patient, she is having to miss school due to abdominal pain and vomitingcu rrently asymptomat icrecommen ded 400mg ibuprofen with meals every 6 hours prn painpatien t can follow up with telephone sales representative at [facility] if symptoms persist Sleep aria filomena disturbance 33396898 G47.9 discussed proper sleep hygeine turn off lights, tv, drink caffeine free tea, avoid naps, no caffeinate d drinkspati ent can try half tab of otc benadryl (12.5mg) 1 hour before bedtime, increase to full tab as needed and toleratedw ill monitor for now and discuss if patient needs referral for sleep clinic or ent if needed [id number] Ovidio Brand PA-C [facility] (Peds) [address] [place] [address] 06/29/2020 11:49:56 07/01/2020 11:19:52 Diet education 63897243 Z71.3 Exercises education, guidance, and counseling 288326331 Z71.82 Fibroadeno ma of breast 068757159 D24.9 discussed 2 year history of bilateral breast adenomasre assurance provided, but since the symptoms have been going on for 2 years I will order breast ultrasound ibuprofen [facility] up in 2 weeksneg in office preg test Allergic rhinitis 449787 04 J30.9 patient intersted in changing cetirizine due to cetrizine causing metallic taste in mouth, switching to loratadine continue flonase 03/15/2020d iscussed post nasal drainage and prominent epiglottis reassuranc e giventrial with flonase and cetirizine refilled mupirocin ointment which patient has used in the past, currently asymptomat icrefill given but discussed only to apply if she develops bacterial infection symptoms appear, which mom states tends to happen when allergies are aggravated .will monitorfol low up in 1monthif patient still has concerns with allergies, I will refer to ent at follow up if needed [id number] Ovidio Brand PA-C [facility] (Peds) [address] [place] [address] 07/20/2020 10:17:00 07/21/2020 10:15:53 Fibroadenoma of breast 880864752 D24.9 discussed 2 year history of bilateral breast adenomasre viewed 07/03/2020 normal breast ultrasound pain improved with ibuprofenw ill monitor for now, provided informatio n to telephone sales representative at [facility] if symptoms return or persistmom states she understand s and will comply, no new concerns. [id number] RENETTA SAMPSON NP [facility] (Peds) [address] [place] [address] 02/01/2021 15:09:14 02/02/2021 15:44:23 Well child visit 500545305 Z00.129 Immunization due 6624581 08 Z28.3 Exercise-i nduced asthma 39253757 J45.990 Normal weight 29705567 Z 68.52 Diet education 52817090 Z71.3 Exercises education, guidance, and counseling 443237307 Z71.82 [id number] [facility] [address] [place] [address] 02/23/2021 11:53:43 02/26/2021 15:24:57 Administration of SARS-CoV-2 antigen vaccine 644370427 Z23 [id number] Ovidio Brand PA-C [facility] (Peds) [address] [place] [address] 01/30/2022 11:00:48 01/31/2022 10:09:19 Dizziness 612610677 R42 intermitte ntdiscusse d could be due to dehydratio nrecommend ed to avoid missing meals, drinks fluidslabs orderedfol low up in 1 weekwarnin g signs discussed on when to go to ER Venereal d isease screening 603703812 Z11.3 recent in Aug 2022last menstrual cycle 2 weeks agolabs ordered Well child visit 1096910 09 Z00.620 [id number] Ovidio Brand PA-C [facility] (Peds) [address] [place] [address] 02/07/2022 09:05:22 02/08/2022 10:53:30 Dizziness 038016336 R42 intermitte ntdiscusse d could be due to dehydratio nrecommend ed to avoid missing meals, drinks fluidslabs orderedfol low up in 1 weekwarnin g signs discussed on when to go to ER Anemia 775277361 D64.9 reviewed low 01/30/22 ironwill start patient on ironfollow up in 1month [id number] Ovidio Brand PA-C [facility] (Peds) [address] [place] [address] 04/11/2022 11:25:35 04/12/2022 14:05:12 Venereal disease screening 196696850 Z11.3 recent in Aug 2022last menstrual cycle 2 weeks agolabs ordered Iron defic iency anemia 06681311 D50.9 currently taking ironwill recheck in 1month [id number] MARK Dela Cruz [facility] (Adult Med) [address] [place] [address] 05/14/2022 09:27:53 05/15/2022 11:27:36 Abdominal pain 33944350 R10.9 discussed could be due to gastritisw ill trial with omeprazole BRATurine sent outif no relief with order abdominal ultrasound warning signs discussedk eep appointmen t with telephone sales representative as directedfo llow up in office with pcp for evaluation Iron defic iency anemia 71598382 D50.9 currently not taking ironwill recheck [id number] Ovidio Brand PA-C [facility] (Peds) [address] [place] [address] 06/14/2022 14:05:40 06/19/2022 13:39:21 Iron deficiency anemia 06969921 D50.9 currently not taking ironwill restart ironrepeat labs in 1month Exercise-i nduced asthma 63237357 J45.990 controlled on ventolin prnpatient never uses inhaler at bedtime, uses less than twice a weekasthma action plan providedre filled medication [id number] Ovidio Brand PA-C [facility] (Adult Med) [address] [place] [address] 07/23/2022 09:55:08 07/24/2022 10:45:00 Iron deficiency anemia 62970162 D50.9 currently not taking ironwill restart ironrepeat labs in 1month Venereal d isease screening 827301602 Z11.3 [id number] Ovidio Brand PA-C [facility] (Peds) [address] [place] [address] 08/14/2022 11:00:07 08/23/2022 08:12:36 Diet education 80662508 Z71.3 Exercises education, guidance, and counseling 538860537 Z71.82 [id number] Ovidio Brand PA-C [address] [address] 12/05/2022 11:10:10 12/06/2022 09:04:02 Normal weight 42973394 Z68.20 Vaginitis 91947745 N76.0 since Jul 2022was treated with BVsympotms [facility] send out urine and treat for bvfollow up if symptoms persistlmp : 11/23- 3 [id number] Ovidio Brand PA-C [facility] (Peds) [address] [place] [address] 01/31/2023 11:07:43 02/03/2023 18:22:46 Body mass index 20-24 - normal 833025740 Z68.20 Allergic rhinitis 764940 04 J30.9 patient now prefers cetirizine refilled flonase 03/15/2020d iscussed post nasal drainage and prominent epiglottis reassuranc e giventrial with flonase and cetirizine refilled mupirocin ointment which patient has used in the past, currently asymptomat icrefill given but discussed only to apply if she develops bacterial infection symptoms appear, which mom states tends to happen when allergies are aggravated .will monitorfol low up in 1monthif patient still has concerns with allergies, I will refer to ent at follow up if needed Exercise-i nduced asthma 47374428 J45.990 controlled on ventolin prnpatient never uses inhaler at bedtime, uses less than twice a weekasthma action plan providedre filled medication [id number] Ovidio Brand PA-C [facility] (Peds) [address] [place] [address] 04/23/2023 10:52:09 04/29/2023 14:43:43 Body mass index 25-29 - overweight 741748992 Z68.25 Overweight 767047188 E66 .3 Vaginitis 96042728 N76.0 ongoingcur rently on antibiotic s for utiwill treat for yeastsend out nuswabfoll ow up in 1 week or sooner if problems ariseincre ase fluids [id number] Ovidio Brand PA-C [facility] (Peds) [address] [place] [address] 05/07/2023 09:42:18 05/09/2023 15:03:55 Body mass index 25-29 - overweight 286544753 Z68.25 Overweight 359818306 E66 .3 Gonorrhea 63301835 A54.9 went to urgent care and was treated for gonorrhea, no more discharge per patientwil l monitorpat ient to noitfy me if symptoms return [id number] Ovidio Brand PA-C [facility] (Peds) [address] [place] [address] 09/26/2023 11:07:51 09/29/2023 15:51:54 Body mass index 25-29 - overweight 619244038 Z68.25 Overweight 367667531 E66 .3 Constipation 70654292 K5 9.00 fluid, fiber, fitness discussedw ill send colace which has helped in the past, follow up if symptoms persistwar garima signs discussedn o blood in stool discussed High risk sexual behavior 970979297 Z72.51 partner tested positive for chlamydiaw ill send doxycyline safe sex precaution s discussedp atient to return in office for evaluation denies possibilit y of Health Concerns Section Related Observation LastModified by Organization Detai ls LastModified Time None Recorded Concern Status LastModified by Organization Details LastModified Time None Recorded Advance Directives Directive None Recorded Payers Encounter Date Sequence Insurance Name Policy Number Policy Roberson Covered Member ID Roberson Member ID Guarantor Name 12/05/2022 1 [facility] (MEDICAID HMO) [id number] Mary Grace Heaton [id number] Barbi Heaton 01/31/2023 1 [facility] (MEDICAID HMO) [id number] Mary Grace Heaton [id number] Barbi Heaton 04/23/2023 1 [facility] (MEDICAID HMO) [id number] 0003 Mary Grace Heaton [id number] Barbi Heaton 05/07/2023 1 [facility] (MEDICAID HMO) [id number] 0003 Mary Grace Heaton [id number] Barbi Heaton 09/26/2023 1 *SELF PAY* Ve alan Heaton Notes Date Note Type Note Provider Name and Address Organization Details Recorded Time 3 text/html Vaginal DischargeReported bypatient.Location:vagina Severity:mild Associated Symptoms:vaginal burningNotes:fishy smell Ovidio Brand PA-C Attn: [employer] [place], [place], [address] [place] [address] 12/05/2022 16:26:31 3 text/html VaginitisReported bypatient.Location:[facility] Quality:itching Severity:mild Duration:>1 month Onset/Timing:intermittent Modifying Factors:recent antibiotics Associated Symptoms:no rash; no lesions Ovidio Brand PA-C Attn: [employer] [place], [place], [address] [place] [address], [facility] 04/23/2023 11:37:15 3 text/html follow up from last visitno more symptoms of dischargewas recently treated for gonorrhea Ovidio Brand PA-C Attn: [employer] [place], [place], [address] [place] [address], [facility] 05/07/2023 10:12:52 4 text/html ConstipationReported bypatient.Quality:hard;st raining;small amount Associated Symptoms:no abdominal pain; no excess gas; no fever; no rash; no joint pain; no weight loss; no nausea; no vomiting; no heartburn; no blood in stool; no mucus in stool; no black or tarry stools; no weakness; no nutrient deficiency; no fecal incontinenceNotes:has been given colace in the past with reliefrequesting refill partner tested positive for chlamydia, patient is asymptomatic but requesting rx, no fever, no belly pain Ovidio Brand PA-C Attn: [employer] [facility], [place], [address], [place] [facility] 09/26/2023 12:03:19 OBGyn Episode No OBEpisode recorded.
[2024-11-09 15:38] LABS: RPR Screen NON-REACTIVE (NON-REACTIVE)
[2024-11-09 20:18] LABS: Hematocrit 40.3 % (35.0-45.0); Hemoglobin 13.2 g/dL (11.7-15.5); MCH 28.2 pg (27.0-33.0); MCV 86.1 fL (80.0-100.0); RDW 14.2 % (11.0-15.0); Red Blood Cell Count 4.68 Million/uL (3.80-5.10)
== END 2024-11-08 13:10 | disposition home or self-care (01) ==
LOC: ANHLAB 13:11
PROVIDERS: Visit Provider Student in an Organized Health Care Education/Training Program
DX: N91.2 Amenorrhea, unspecified (principal); D57.1 Sickle-cell disease without crisis
CPT/HCPCS: 36415; 83021; 86592; 86787; 87086